=== PATIENT | male | born 1955 | race Two or more races ===

== ENCOUNTER 2019-08-13 20:54 | Inpatient (IN) | payer MEDICARE, OTHER ==
[~2019-08-13] VITALS: Ht 170.2 cm; Wt 62.6 kg
--- NOTE | 2019-08-13 21:20 | NUR ---
PT BIB PA WITH A C/O LLE LACERATION. 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 PT IS AA&O X1 AT BASELINE. PER REPORT, NO GLF AND UNKNOWN WHEN LAC HAPPENED.
--- NOTE | 2019-08-13 22:35 | NUR ---
PT WAS SEEN BY DR VANESSA AND WILL BE D/C'D HOME.
--- NOTE | 2019-08-13 22:43 | NUR ---
[facility] ETA 0015 TRIP #[id number]
[2019-08-13] MEDS ORDERED: TDAP [DIPH/PERTUSSIS/TET] 0.5 ML VIAL IM ONE ×2 (23:00→23:06)
--- NOTE | 2019-08-14 00:28 | NUR ---
SPOKE TO SHEREEN CAIN AT [facility], ALISON GARCIA RE: THE PT RETURNING TO THE FACILITY. NO NEW ORDERS AND NO TREATMENT DONE IN ER.
--- NOTE | 2019-08-14 00:30 | NUR ---
CALLING [facility] RE: ETA. ETA NOW 30 MINS MORE.
--- NOTE | 2019-08-14 01:01 | NUR ---
Jordyn at bedside for transport.
--- NOTE | 2019-08-14 01:18 | NUR ---
pt noted to be tachy hr 150. Dr Felipe notified.
[2019-08-14] MEDS ORDERED: DILTIAZEM HCL 50 MG IV IV ONE ×2 (01:30→02:00)
[2019-08-14] MEDS ORDERED: DILTIAZEM HCL 30 MG TABLET PO ONE (01:30)
[2019-08-14] MEDS ORDERED: DILTIAZEM HCL 25 MG IV ONE ×5 (01:37→05:21)
[2019-08-14] MEDS ORDERED: DILTIAZEM HCL 30 MG TABLET ONE (01:37)
[2019-08-14 01:44] LABS: BASOPHILS % (AUTO) 0.4 % (0.0-2.0); HEMATOCRIT 34 % (39-51); HEMOGLOBIN 10.5 g/dL (13.5-17.5); LYMPHOCYTES # (AUTO) 1.5 /CMM (0.8-4.8); LYMPHOCYTES % (AUTO) 11.3 % (20.0-44.0); MEAN CORPUSCULAR HGB CONC 31 g/dl (31.0-36.0); MEAN CORPUSCULAR VOLUME 86 fL (80-96); MONOCYTES # (AUTO) 0.9 /CMM (0.1-1.30); MONOCYTES % (AUTO) 7.2 % (2.0-12.0); NEUTROPHILS # (AUTO) 10.6 /CMM (1.8-8.9); NEUTROPHILS % (AUTO) 81.1 % (43.0-81.0); PLATELET COUNT (AUTO) 396 /CMM (150-450); RED BLOOD CELL COUNT(AUTO) 3.89 MIL/uL (4.5-6.0)
[2019-08-14 01:51] LABS: CALCIUM, SERUM 8.8 mg/dL (8.5-10.1); CREATININE 1.1 mg/dL (0.6-1.3); POTASSIUM 4.6 mmol/L (3.5-5.1)
[2019-08-14] MEDS ORDERED: LORAZEPAM INJ 2 MG/ML VIAL ONE (02:11)
[2019-08-14] MEDS ORDERED: DILTIAZEM HCL 50 MG IV ONE (02:29)
[2019-08-14] MEDS ORDERED: IV NS 0.9% 1,000 ML IV PRN ×3 (02:30→09:43)
[2019-08-14] MEDS ORDERED: LORAZEPAM INJ 2 MG/ML VIAL IV ONE (02:30)
[2019-08-14] MEDS: DILTIAZEM HCL IV 125 MG in IV D5W 100 ML IV PRN ×2 (02:39→05:38)
--- NOTE | 2019-08-14 02:47 | NUR ---
seen by trevor BAGLEY
[2019-08-14 03:00] LABS: APPEARANCE,URINE Clear (CLEAR); BILIRUBIN,URINE Negative (NEGATIVE); BLOOD, URINE Trace-lysed Ery/uL (NEGATIVE); COLOR,URINE Yellow (YELLOW); KETONES,URINE 15 (NEGATIVE); LEUKOCYTE ESTERASE ,URINE Small (NEGATIVE); NITRITE, URINE Positive (NEGATIVE); PROTEIN,URINE 100 mg/dl (NEGATIVE); UGLUCOSE Negative (NEGATIVE); UROBILINOGEN,URINE 0.2 EU/dL (0.2)
[2019-08-14] MEDS ORDERED: NS 0.9% IV PRN (03:00)
--- NOTE | 2019-08-14 03:08 | NUR ---
placed on 2l of n/c Addendum: 08/14/19 at 0308 by EWS noted 88% O2, Patient is asleep.
[2019-08-14] MEDS ORDERED: FERR325T23 PO (03:37)
[2019-08-14] MEDS ORDERED: FAMO20TA8 PO (03:37)
[2019-08-14] MEDS ORDERED: INSU100V7 SQ (03:37)
[2019-08-14] MEDS ORDERED: OXYC-128 PO (03:37)
[2019-08-14] MEDS ORDERED: AMLO10TA7 PO (03:37)
[2019-08-14] MEDS ORDERED: QUET25TA PO ×2 (03:37)
[2019-08-14] MEDS ORDERED: TAMS-12 PO (03:37)
[2019-08-14] MEDS ORDERED: FINA5TAB11 PO (03:37)
[2019-08-14] MEDS ORDERED: GABA-532 PO (03:37)
[2019-08-14] MEDS ORDERED: PRED10TA PO (03:37)
[2019-08-14] MEDS ORDERED: VALP250C3 PO (03:37)
[2019-08-14 03:51] LABS: BACTERIA,URINE Few /HPF (None Seen); RBC,URINE 0-2 /HPF (0-2); SQUAMOUS EPITHELIAL CELL,UR Few /HPF (None Seen)
--- NOTE | 2019-08-14 03:53 | NUR ---
spoke w/ Janee DNP, verbal order to give Normal saline 1000mL 150ml/hr. will carry out order.
--- NOTE | 2019-08-14 03:58 | NUR ---
Orders carried out
--- NOTE | 2019-08-14 04:12 | NUR ---
report given to Narda REGAN for RAMSES
--- NOTE | 2019-08-14 04:25 | NUR ---
PLATE PUT IN WORKER NOTES: PATIENT ARRIVED TO UNIT VIA ACLS PROTOCOL. NO RESPIRATORY DISTRESS. ON O2 AT 2 LPM VIA NC, TOLERATING WELL. ON CRISIS MANAGER SHOWING HR 130s-140s. NO C/O CHEST PAIN. PHOTOS OF SKIN ISSUES TAKEN AND PLACED IN CHART. WOUND DRESSINGS CLEANED AND CHANGED. SANDY IS INTACT, PATENT, AND FLUSHING WELL. SAFETY PRECAUTIONS IMPLEMENTED. BED LOCKED, ALARM ON, AND IN LOWEST POSITION. CALL LIGHT PLACED WITHIN REACH. WILL CONT. TO MONITOR.
[2019-08-14] MEDS ORDERED: CEFTRIAXONE 1 G VIAL ONE (05:17)
[2019-08-14] MEDS: CEFTRIAXONE 1 G in IV D5W 50 ML IV SCH (05:21)
[2019-08-14 06:00] VITALS: BP 119/74
--- NOTE | 2019-08-14 07:30 | NUR ---
JHONATHAN RN AM NOTES: PATIENT IN BED, ASLEEP, AROUSES TO LIGHT PAIN, UNCOMPREHENSIBLE WORDS, ON O2 AT 2 LPM VIA NC, TOLERATING WELL. NO DISTRESS/SOB, ON SCHOOL SERVICES OFFICER SHOWING HR 130s-140s. MD AWARE. NO C/O CHEST PAIN. IV TO LEFT FOREARM G 20 FLUSHES WELL, SITE CLEAR. SANDY IS INTACT, PATENT, DRAINING YELLOW COLORED URINE, ADEQUATE AMOUNT. SEE NURSING FLOWSHEET FOR SKIN ISSUES. SAFETY PRECAUTIONS IMPLEMENTED. BED LOCKED, ALARM ON, AND IN LOWEST POSITION. CALL LIGHT PLACED WITHIN REACH. WILL CONT. TO MONITOR.
--- NOTE | 2019-08-14 07:30 | NUR ---
RN CLOSING NOTE: PATIENT IN STABLE CONDITION. NOT IN ANY ACUTE DISTRESS. PER KHUSHI DIRECTOR OF PRODUCT DEVELOPMENT, TELLY IS DC'D AND PLACE PATIENT ON NPO. ENDORSED TO AM SHIFT NURSE FOR CONTINUITY OF CARE.
[2019-08-14 08:00] VITALS: BP 98/75
--- NOTE | 2019-08-14 08:00 | NUR ---
RN NOTES PER NAVARRO PURI NP EARLIER, PATIENT WAS STARTED ON CARDIZEM DRIP BUT DID NOT DO ANY GOOD TO HIS HEART RATE. DRIP STOPPED AND AWAITING CARDIAC CONSULT.
[2019-08-14] MEDS ORDERED: ENOXAPARIN SODIUM 40 MG/0.4 ML DISP.SYRIN SQ ONE (09:00)
[2019-08-14] MEDS: INSULIN GLARGINE, 100 UNIT/ML CARTRIDGE SQ SCH (10:00)
[2019-08-14] MEDS: GABAPENTIN 100 MG CAPSULE PO SCH ×3 (10:00→17:16)
[2019-08-14] MEDS: FINASTERIDE (5 MG) 5 MG TABLET PO SCH (10:00)
[2019-08-14] MEDS: QUETIAPINE FUMARATE 25 MG TABLET PO SCH ×4 (10:00→22:50)
[2019-08-14] MEDS: predniSONE 10 MG TABLET PO SCH (10:00)
[2019-08-14] MEDS: FAMOTIDINE (20 MG) 20 MG TABLET PO SCH ×2 (10:00→21:00)
[2019-08-14] MEDS ORDERED: AMIODARONE 900 MG in IV D5W 500 ML IV PRN (10:00)
[2019-08-14] MEDS: TAMSULOSIN 0.4 MG CAP.SR.24H PO SCH ×2 (10:00→22:50)
[2019-08-14] MEDS ORDERED: AMIODARONE 150 MG in IV D5W 100 ML IV ONE (10:00)
[2019-08-14] MEDS: VALPROIC ACID 250 MG/5 ML UDC PO SCH ×2 (10:00→17:16)
--- NOTE | 2019-08-14 10:00 | NUR ---
JHONATHAN RN NOTES MEDICATIONS NOT GIVEN PER OREM. PATIENT VERY LETHARGIC
[2019-08-14] MEDS ORDERED: RIVAROXABAN 10 MG TABLET PO SCH (11:00)
[2019-08-14 12:00] VITALS: BP 139/74
[2019-08-14 12:07] LABS: MAGNESIUM 1.8 mg/dL (1.8-2.4); PHOSPHORUS 3.1 mg/dL (2.5-4.9)
[2019-08-14 12:16] LABS: THYROID STIMULATING HORMONE 0.46 uIU/mL (0.358-3.74)
--- NOTE | 2019-08-14 13:17 | NUR ---
RN NOTES PER DR. YIN TO SKIP NEURONDOUG FOR NOW.
[2019-08-14] MEDS: RIVAROXABAN 10 MG TABLET PO SCH ×2 (13:22→17:00)
[2019-08-14 16:00] VITALS: BP 123/71
--- NOTE | 2019-08-14 18:32 | NUR ---
JHONATHAN RN CLOSING NOTES: PATIENT IN BED, RESTING. MORE ALERT BUT CONFUSED, ON O2 AT 2 LPM VIA NC, TOLERATING WELL. NO DISTRESS/SOB, ON CABLE MAKER SHOWING HR 130s-140s. MD AWARE. NO C/O CHEST PAIN. ON AMIODARONE DRIP AT 33.3 ML/HR. IV TO LEFT FOREARM G 20 FLUSHES WELL, SITE CLEAR. SANDY IS INTACT, PATENT, DRAINING YELLOW COLORED URINE, ADEQUATE AMOUNT 1250 ML OUTPUT. SAFETY PRECAUTIONS IMPLEMENTED. BED LOCKED, ALARM ON, AND IN LOWEST POSITION. CALL LIGHT PLACED WITHIN REACH. ALL NEEDS MET AT THIS TIME. RESTRAINT RELEASED EVERY 2 HOURS AND CHECKED FOR CIRCULATION. WILL ENDORSE TO NEXT SHIFT. PATIENT MORE ALERT, ABLE TO SWALLOW MEDICATIONS CRUSHED WITH APPLE SAUCE. HOB ELEVATED.
--- NOTE | 2019-08-14 19:25 | NUR ---
TELE-TD/RN notes Patient received in bed, Awake, A/O x0, confused. In no acute distress, breathing even and unlabored. No SOB noted. no S/S of pain noted at this time. A-fib on the monitor, MD aware, on Amiodarone drips, titrated down to 16.5ml/hr.. IV site with no S/S of infection/infiltration, with fluids as ordered. rankin cath in place, patent with yellow color urine, Safety maintained, bed at the lowest locked position. Call light within reach. Will continue to monitor as per plan of care.
--- NOTE | 2019-08-14 21:14 | NUR ---
Patient hardly arousable to verbal and tactile stimuli, Breathing even and unlabored. No SOB noted, VSS, Saturation 96% on 2LPM via NC, Checked patient blood sugar at this time noted 51.
--- NOTE | 2019-08-14 21:15 | NUR ---
PEPCID NOT GIVEN ORDERED, PATIENT HARDLY AROUSABLE
--- NOTE | 2019-08-14 21:21 | NUR ---
Called Janee Meier at this time with new order for IV D50 x1 and change the fluids to D5NS @ 75mL/HR. Orders noted and will carry out.
[2019-08-14] MEDS ORDERED: DEXTROSE 50%-WATER 50 ML DISP.SYRIN IVP ONE (21:30)
--- NOTE | 2019-08-14 21:55 | NUR ---
Checked patient blood sugar at this time 131, patient awake, A/O to his base line. In no acute distress, breathing even unlabored. No SOB noted. VSS. Will continue to monitor
[2019-08-14 22:00] VITALS: BP 141/85
[2019-08-14] MEDS ORDERED: IV D5/ 0.9% NACL 1,000 ML IV PRN (22:00)
[2019-08-15] VITALS (8 sets, daily range): BP systolic 126–143; BP diastolic 59–83
[2019-08-15] MEDS: CEFTRIAXONE 1 G in IV D5W 50 ML IV SCH (05:33)
[2019-08-15 06:45] LABS: BASOPHILS % (AUTO) 0.3 % (0.0-2.0); EOSINOPHILS % (AUTO) 0.4 % (0.0-6.0); HEMATOCRIT 31 % (39-51); HEMOGLOBIN 9.7 g/dL (13.5-17.5); LYMPHOCYTES # (AUTO) 1.5 /CMM (0.8-4.8); LYMPHOCYTES % (AUTO) 10.7 % (20.0-44.0); MEAN CORPUSCULAR HGB CONC 31 g/dl (31.0-36.0); MEAN CORPUSCULAR VOLUME 86 fL (80-96); MONOCYTES # (AUTO) 1.4 /CMM (0.1-1.30); MONOCYTES % (AUTO) 9.9 % (2.0-12.0); NEUTROPHILS % (AUTO) 78.7 % (43.0-81.0); PLATELET COUNT (AUTO) 395 /CMM (150-450); RED BLOOD CELL COUNT(AUTO) 3.64 MIL/uL (4.5-6.0)
[2019-08-15 07:01] LABS: ALBUMIN 1.8 g/dL (3.4-5.0); BILIRUBIN,TOTAL 0.5 mg/dL (0.2-1.0); CREATININE 0.7 mg/dL (0.6-1.3); MAGNESIUM 1.7 mg/dL (1.8-2.4); PHOSPHORUS 2.4 mg/dL (2.5-4.9); POTASSIUM 3.6 mmol/L (3.5-5.1); TOTAL PROTEIN, SERUM 5.3 g/dL (6.4-8.2)
--- NOTE | 2019-08-15 07:20 | NUR ---
TELE-TD/RN notes Patient remained in bed, Awake, A/O x1, confused. In no acute distress, breathing even and unlabored. No SOB noted. no S/S of pain noted at this time. A-fib on the monitor, uncontrolled, MD aware, on Amiodarone drips as ordered. IV site with no S/S of infection/infiltration, with fluids as ordered. rankin cath in place, patent with yellow color urine output 900 in this shift. Safety maintained, bed at the lowest locked position. Call light within reach. endorse to AM shift nurse for RAMSES. .
--- NOTE | 2019-08-15 08:00 | NUR ---
TD/RN AM SHIFT INITIAL NOTES RECEIVED PT AWAKE IN BED, PT ALERT X 1, CONFUSED. RESTLESS. NO ACUTE CHANGE OF CONDITION NOTED. ON 2L O2 VIA N/C SATURATING @ 100%, RESPIRATIONS EVEN & UNLABORED, LUNG SOUNDS CLEAR. ON TELE WITH UNCONTROLLED A-FIB, HR 129. PT WITH ON GOING IV INFUSION OF AMIODARONE DRIP @ 0.5MG/MIN AND D5NS @ 75CC/HR, IV SITE PATENT WITH NO S/S ON INFECTION. PT ON NPO EXCEPT MEDS. BILATERAL SOFT WRIST RESTRAINTS IN PLACED, RELEASED TO CHECK FOR CIRCULATION AND COMFORT THEN PLACED BACK. SANDY CATHETER INTACT NOTED WITH YELLOW URINE OUTPUT. SCHEDULED AM MEDS TO BE GIVEN. CL WITHIN REACHED AND SAFETY MAINTAINED. ON GOING MONITORING.
[2019-08-15] MEDS: predniSONE 10 MG TABLET PO SCH (08:28)
[2019-08-15] MEDS: FAMOTIDINE (20 MG) 20 MG TABLET PO SCH ×2 (08:28→21:54)
[2019-08-15] MEDS: QUETIAPINE FUMARATE 25 MG TABLET PO SCH ×4 (08:28→21:54)
[2019-08-15] MEDS: FINASTERIDE (5 MG) 5 MG TABLET PO SCH (08:28)
[2019-08-15] MEDS: GABAPENTIN 100 MG CAPSULE PO SCH ×3 (08:28→16:45)
[2019-08-15] MEDS: VALPROIC ACID 250 MG/5 ML UDC PO SCH ×2 (08:28→16:45)
[2019-08-15] MEDS: INSULIN GLARGINE, 100 UNIT/ML CARTRIDGE SQ SCH (08:30)
[2019-08-15] MEDS ORDERED: POTASSIUM PHOSPHATE MM 15 MMOL in IV D5W 250 ML IV SCH (09:30)
[2019-08-15] MEDS: Magnesium 1GM/D5W 100ML PREMIX 100 ML IV SCH ×2 (10:17→11:41)
[2019-08-15] MEDS: POTASSIUM PHOSPHATE MM 7.5 MMOL in IV D5W 100 ML IV SCH ×2 (10:17→13:43)
--- NOTE | 2019-08-15 11:00 | NUR ---
TD/RN ROUNDS - DR. YIN UPDATED PT'S CONDITION. PT SEEN & EXAMINED BY DR. YIN, WITH VERBAL ORDERS RECEIVED TO RESUME FEEDING AND D/C IV FLUIDS ONCE PT STARTED EATING. ORDERS NOTED AND CARRIED OUT. MONITORING CONTINUED.
[2019-08-15] MEDS: DIGOXIN 0.25 MG TABLET PO SCH (12:31)
--- NOTE | 2019-08-15 13:03 | NUR ---
TD/RN CONSENT - CARDIOVERSION CONSENT OBTAINED FROM PT'S SON (NAM HERRERA) FOR CARDIOVERSION. CONSENT FILLED IN PT'S CHART.
[2019-08-15 13:29] LABS: OCCULT BLOOD STOOL NEGATIVE (NEGATIVE)
--- NOTE | 2019-08-15 15:30 | NUR ---
TD/LINING MARKER OF CARE REPORT GIVEN TO NURSE GONZALES. PT ENDORSED TO CONTINUE CARE.
[2019-08-15] MEDS: RIVAROXABAN 10 MG TABLET PO SCH (16:45)
[2019-08-15] MEDS: AMIODARONE HCL 200 MG TABLET PO SCH (16:47)
[2019-08-15] MEDS: SOD FERRIC GLUC 125 MG in IV NS 0.9% 100 ML IV SCH (17:12)
--- NOTE | 2019-08-15 17:41 | NUR ---
RN NOTES 1400 IV FERRLICET GIVEN LATE BECAUSE LACK OF IV ACCESS. WILL CONTINUE TO MONITOR FOR ANY CHANGES.
--- NOTE | 2019-08-15 18:56 | NUR ---
RN NOTES RESTRAINTS HAVE BEEN RENEWED. PT IS STILL CONFUSED AND ATTEMPTS PULL ON IV LINES AND OXYGEN TUBING, WILL CONTINUE TO MONITOR FOR ANY CHANGES.
--- NOTE | 2019-08-15 19:30 | NUR ---
RN CLOSING NOTES PATIENT IS RESTING COMFORTABLY IN BED, DOES NO SHOW ANY S/SX OF DISTRESS AT THIS TIME. BILATERAL SOFT WRIST RESTRAINTS ARE INTACT, PT IS CONFUSED AND TRIES TO PULL ON LINES. HE IS SCHEDULED FOR CARDIOVERSION TOMORROW AM WITH DR. BASILIO. PT NEEDS HAVE BEEN MET, VITAL SIGNS ARE STABLE, NO ACUTE CHANGES OCCURRED THROUGHOUT THE SHIFT. SAFETY MEASURES HAVE BEEN IMPLEMENTED, CALL LIGHT IS WITHIN REACH, BED IS IN LOWEST AND LOCKED POSITION, SIDE RAILS UP X2, PT HAS BEEN ENDORSED TO NIGHTSHIFT RN FOR CONTINUITY OF CARE.
[2019-08-15] MEDS: MUPIROCIN OINT 2% 22 GM TUBE SCH (21:52)
[2019-08-15] MEDS: TAMSULOSIN 0.4 MG CAP.SR.24H PO SCH (21:54)
[2019-08-16] VITALS (12 sets, daily range): BP systolic 114–142; BP diastolic 70–91
[2019-08-16] MEDS: CEFTRIAXONE 1 G in IV D5W 50 ML IV SCH (06:04)
--- NOTE | 2019-08-16 07:20 | NUR ---
JHONATHAN RN OPENING NOTES RECEIVED BEDSIDE REPORT FROM [facility] SHIFT NURSE, PT AWAKE IN BED, ALERT AND ORIENTED X 1, ON 02 VIA NC 2L/MIN, SATURATING WELL, RESPIRATIONS EVEN AND UNLABORED, NO SIGNS OF RESPIRATORY DISTRESS NOTED. BILATERAL SOFT WRIST RESTRAINTS ARE INTACT, CHECKED SKIN INTEGRITY, CIRCULATION AND FOR PULSES. ON TELE MONITOR AFIB UNCONTROLLED HR 138. REMOVED IV SITE ON LEFT FOREARM G18, SECURED WITH CLEAN DRESSING. RIGHT UPPER ARM MIDLINE INTACT, PATENT, SECURED WITH CLEAN DRESSING. SANDY CATHETER INTACT, PATENT, DRAINING SULEMA URINE. DIGNISHIELD INTACT. NPO SINCE MIDNIGHT. SCHEDULED FOR CARDIOVERSION AT 11AM, WILL BE TRANSFERRED TO ROOM 263 IN ICU AT 0900. BED IN LOW POSITION, LOCKED, CALL LIGHT WITHIN REACH.
[2019-08-16 07:23] LABS: BASOPHILS % (AUTO) 0.3 % (0.0-2.0); EOSINOPHILS % (AUTO) 0.3 % (0.0-6.0); HEMATOCRIT 31 % (39-51); LYMPHOCYTES # (AUTO) 1.8 /CMM (0.8-4.8); LYMPHOCYTES % (AUTO) 14.2 % (20.0-44.0); MEAN CORPUSCULAR HGB CONC 32 g/dl (31.0-36.0); MEAN CORPUSCULAR VOLUME 85 fL (80-96); MONOCYTES # (AUTO) 1.3 /CMM (0.1-1.30); MONOCYTES % (AUTO) 10.2 % (2.0-12.0); NEUTROPHILS # (AUTO) 9.4 /CMM (1.8-8.9); PLATELET COUNT (AUTO) 398 /CMM (150-450); RED BLOOD CELL COUNT(AUTO) 3.67 MIL/uL (4.5-6.0); WHITE BLOOD COUNT (AUTO) 12.6 K/uL (4.3-11.0)
[2019-08-16 07:48] LABS: ALBUMIN 1.6 g/dL (3.4-5.0); BILIRUBIN,TOTAL 0.3 mg/dL (0.2-1.0); CALCIUM, SERUM 8.1 mg/dL (8.5-10.1); CREATININE 0.9 mg/dL (0.6-1.3); MAGNESIUM 1.9 mg/dL (1.8-2.4); PHOSPHORUS 2.3 mg/dL (2.5-4.9); POTASSIUM 3.4 mmol/L (3.5-5.1); TOTAL PROTEIN, SERUM 5.2 g/dL (6.4-8.2)
[2019-08-16] MEDS: AMIODARONE HCL 200 MG TABLET PO SCH (08:14)
[2019-08-16] MEDS: VALPROIC ACID 250 MG/5 ML UDC PO SCH ×2 (08:15→16:30)
[2019-08-16] MEDS: GABAPENTIN 100 MG CAPSULE PO SCH ×3 (08:15→16:31)
[2019-08-16] MEDS: FINASTERIDE (5 MG) 5 MG TABLET PO SCH (08:16)
[2019-08-16] MEDS: predniSONE 10 MG TABLET PO SCH (08:16)
[2019-08-16] MEDS: QUETIAPINE FUMARATE 25 MG TABLET PO SCH ×4 (08:16→21:01)
[2019-08-16] MEDS: FAMOTIDINE (20 MG) 20 MG TABLET PO SCH ×2 (08:16→21:01)
[2019-08-16] MEDS: MUPIROCIN OINT 2% 22 GM TUBE SCH ×2 (08:19→21:06)
[2019-08-16] MEDS: INSULIN GLARGINE, 100 UNIT/ML CARTRIDGE SQ SCH (08:23)
[2019-08-16 08:51] LABS: LYMPHOCYTES % (MANUAL) 16 % (16-48); MONOCYTES % (MANUAL) 6 % (0-11.0); NEUTROPHILS % (MANUAL) 78 (42-76)
--- NOTE | 2019-08-16 09:00 | NUR ---
TRANSFERRED PT VIA ACLS PROTOCOL TO ICU ROOM 263, REPORT GIVEN TO JORJE REGAN FOR RAMSES
--- NOTE | 2019-08-16 09:05 | NUR ---
FOOD STOREROOM CLERK NOTES RECEIVED PATIENT FROM JHONATHAN FOR SCHEDULED CARDIOVERSION.
--- NOTE | 2019-08-16 10:52 | NUR ---
FACTORY LABORER NOTE DR. BASILIO, DR. DAGOBERTO THORPE AND DR. MURILLO AT BEDSIDE FOR SCHEDULED CARDIOVERSION 1047 - PATIENT GIVEN PROPOFOL BY DR. THORPE. CARDIOVERSION DONE X 3 SHOCKS - DID NOT CONVERT. 105 - PROCEDURE DONE AT 1052. PRE AND POST EKG DONE.
[2019-08-16] MEDS ORDERED: PROPOFOL 200 MG/20 ML VIAL IV ONE (11:00)
--- NOTE | 2019-08-16 12:05 | NUR ---
WOUND CARE CONSULT: PT PRESENTS WITH LEFT ARM SKIN TEAR, MULTIPLE DRY ABRASIONS, SACRAL SCARRING WHICH EXTENDS TO BUTTOCKS, LEFT HEEL ESCHAR, LEFT LOWER LEG SKIN TEAR, RT BELOW KNEE AMPUTATION STUMP WITH NECROTIC WOUND, ALL PRESENT ON ADMISSION. RECOMMEND DPM CONSULT AND SURGICAL CONSULT. DR PAINTING NOTIFIED OF CONSULT REQUESTS. ISOFLEX LOW AIRLOSS BED TO BE PLACED. DISCUSSED SKIN PROTECTION WITH NURSING STAFF. DEFER TO SURGICAL TEAMS FOR WOUND TREATMENT PLAN. WILL SEE PRN. FIELDS IN AGREEMENT WITH PLAN OF CARE. Addendum: 08/16/19 at 1207 by SHARYN MORGAN WNDNU Amended: Links added.
[2019-08-16] MEDS: DIGOXIN 0.25 MG TABLET PO SCH (12:29)
[2019-08-16] MEDS: DILTIAZEM HCL CD 240 MG PO SCH (12:30)
[2019-08-16] MEDS ORDERED: Z GUARD REMEDY 2 OZ OINT TP PRN (12:30)
[2019-08-16] MEDS: Z GUARD REMEDY 2 OZ OINT TP SCH (12:30)
[2019-08-16] MEDS: POTASSIUM CL. PREMIX PERIPHER. 50 ML IV SCH ×2 (12:30→13:23)
[2019-08-16] MEDS ORDERED: NEUTRA PHOS 1 POWD.PACKET PO ONE (13:00)
--- NOTE | 2019-08-16 14:35 | NUR ---
DATA ABSTRACTOR NOTES PATIENT TRANSFERRED BACK TO TELEMETRY RM 112-2. REPORT GIVEN TO URBANO FOR RAMSES. Addendum: 08/16/19 at 1548 by JORJE CABRERA RN ADDENDUM: PATIENT S/P DEBRIDEMENT OF RT BKA STUMP. PER DESTINY GARCIA TO COVER WOUND WITH IODOFORM STRIP DOWNSTAIRS, D/T NOT AVAILABLE HERE AT ICU. TOTAL URINE OUTPUT 500 ML.
--- NOTE | 2019-08-16 14:35 | NUR ---
PT TRANSFERRED FROM ICU BACK TO ROOM 112-2. PT IN STABLE CONDITION
[2019-08-16] MEDS: SOD FERRIC GLUC 125 MG in IV NS 0.9% 100 ML IV SCH (15:26)
--- NOTE | 2019-08-16 15:32 | NUR ---
rocky see iv late due to pharmacy not delivering medication on time
[2019-08-16] MEDS: RIVAROXABAN 10 MG TABLET PO SCH (16:31)
--- NOTE | 2019-08-16 19:33 | NUR ---
PT ASLEEP IN BED, ON 02 VIA NC 4L/MIN, SATURATING WELL, RESPIRATIONS EVEN AND UNLABORED, NO SIGNS OF RESPIRATORY DISTRESS NOTED. RIGHT UPPER ARM MIDLINE INTACT, PATENT, SECURED WITH CLEAN DRESSING. RECTAL TUBE IN PLACE. SNADY CATHETER DRAINING SULEMA URINE. AFIB UNCONTROLLED ON TELE MONITOR. BED IN LOW POSITION, LOCKED, CALL LIGHT WITHIN REACH. PROVIDED SAFETY AND COMFROT TO PT THROUGHOUT SHIFT. ALL DUE MEDS GIVEN. GAVE REPORT TO NOC SHIFT NURSE FOR RAMSES.
--- NOTE | 2019-08-16 20:44 | NUR ---
RN NOTE PT NOTED TO HAVE UNCONTROLLED A FIB 145 VIA TELE MONITOR. BLOOD PRESSURE IS 126/70 .NOTIFIED NAVARRO EVANS, WHO STATES THAT PT HAS THIS SINCE ADMISSION AND THAT DR. HERNANDEZ IS AWARE. DRY DIP WORKER HAS NO NEW ORDERS. SUGGESTED THAT PT MAY NEED ABLATION. WILL ENDORSE.
[2019-08-16] MEDS: TAMSULOSIN 0.4 MG CAP.SR.24H PO SCH (21:01)
[2019-08-17] VITALS (7 sets, daily range): BP systolic 121–138; BP diastolic 71–81
--- NOTE | 2019-08-17 03:47 | NUR ---
RN NOTE PT NOTED TO BE LETHARGIC AND UNRESPONSIVE COMPARED TO HIS BASELINE UPON RENDERING PT CARE. BLOOD SUGAR CHECKED TWICE AND NOTED TO BE CRITICALLY LOW. ADMINISTERED D50 VIA IV. PT STILL NOTED TO BE UNRESPONSIVE. VITAL SIGNS STABLE. RAPID RESPONSE CALLED.
[2019-08-17] MEDS ORDERED: DEXTROSE 50%-WATER 50 ML DISP.SYRIN ONE (03:51)
--- NOTE | 2019-08-17 03:55 | NUR ---
RN NOTE RAPID RESPONSE TEAM AT BEDSIDE. NAVARRO INTERFACE DEVELOPER NOTIFIED WITH ORDER TO DO STAT ABG, CHEST X RAY, STAT CT OF HEAD AND TO CALL ER FOR INTUBATION. VITAL SIGNS STABLE. PT STILL UNRESPONSIVE TO TACTILE STIMULI.
--- NOTE | 2019-08-17 04:05 | NUR ---
RN NOTE ER PHYSICIAN (CRISTOPHER) AT BEDSIDE. PER MD, PT HAS GAG REFLUX AND HAS NO NEED FOR INTUBATION. PT CURRENTLY ON NON REBREATHER MASK AND WITH SATURATION WNL. MD ALSO AWARE OF ABG RESULT WHICH SHOWED WNL. CALLED RADIOLOGY FOR STAT CT OF HEAD. CALLED SON (NAM HERRERA) AND OBTAINED CONSENT.
[2019-08-17] MEDS ORDERED: IOHEXOL-350 100 ML VIAL IV ONE (04:18)
[2019-08-17 04:29] LABS: ABG OXYGEN SATURATION 98.6 % (92.0-98.5); ABG PCO2 34.1 mmHg (35.0-45.0); ABG PH 7.425 (7.350-7.450); ABG PO2 312.2 mmHg (75.0-100.0); AaDO2 366.7 mmHg; COHb 0.1 % (0.5-1.5); MetHb 0.5 % (0.0-1.5); SITE, ABG Left Radial; VENT MODE, BG NON REBREATHER
[2019-08-17] MEDS ORDERED: DEXTROSE 50%-WATER 50 ML DISP.SYRIN IV PRN (04:30)
[2019-08-17] MEDS ORDERED: IV D5/ 0.9% NACL 1,000 ML IV PRN (04:30)
[2019-08-17] MEDS ORDERED: DEXTROSE 50%-WATER 50 ML DISP.SYRIN IVP ONE (04:30)
--- NOTE | 2019-08-17 04:43 | NUR ---
RN NOTE PT LEFT FOR CT OF HEAD ACCOMPANIED BY CHARGE NURSE DASIA.
[2019-08-17] MEDS: BLOOD SUGAR DIAGNOSTIC 1 EACH STRIP IN SCH ×12 (05:15→23:56)
[2019-08-17] MEDS: CEFTRIAXONE 1 G in IV D5W 50 ML IV SCH (05:18)
--- NOTE | 2019-08-17 06:15 | NUR ---
RN NOTE PT IS IN BED ALERT AND ORIENTED X 1. PT RESPONSIVE TO VERBAL AND TACTILE STIMULI. PT WITH SPONTANEOUS EYE OPENING. JEWELRY DESIGNER NAVARRO MADE AWARE OF CT HEAD RESULT. PT ON CONTINUOUS MONITORING AT THIS TIME. ALL NEEDS MET AND ATTENDED TO.
--- NOTE | 2019-08-17 06:55 | NUR ---
RN CLOSING NOTE PT IN BED IN SEMI MCMILLAN'S POSITION. PT ORIENTED X 1. REPSONSIVE TO VERBAL AND TACTILE STIMULI. ON 4L OF O2 VIA NON REBREATHER MASK. RESPIRATIONS EVEN AND UNLABORED. PT ON CONTINUOUS BLOOD GLUCOSE MONITORING PER MD. ENDORSED TO MORNING SHIFT.
--- NOTE | 2019-08-17 07:01 | NUR ---
RT NOTE Rapid response orders ordered under my account accidentally per RN. Rn aware
[2019-08-17 07:17] LABS: BASOPHILS % (AUTO) 0.3 % (0.0-2.0); EOSINOPHILS % (AUTO) 0.1 % (0.0-6.0); HEMATOCRIT 33 % (39-51); HEMOGLOBIN 10.6 g/dL (13.5-17.5); LYMPHOCYTES # (AUTO) 1.4 /CMM (0.8-4.8); LYMPHOCYTES % (AUTO) 9.7 % (20.0-44.0); MEAN CORPUSCULAR HGB CONC 32 g/dl (31.0-36.0); MEAN CORPUSCULAR VOLUME 86 fL (80-96); MONOCYTES # (AUTO) 1.3 /CMM (0.1-1.30); MONOCYTES % (AUTO) 8.9 % (2.0-12.0); NEUTROPHILS # (AUTO) 11.7 /CMM (1.8-8.9); PLATELET COUNT (AUTO) 426 /CMM (150-450); RED BLOOD CELL COUNT(AUTO) 3.85 MIL/uL (4.5-6.0); WHITE BLOOD COUNT (AUTO) 14.4 K/uL (4.3-11.0)
[2019-08-17 07:24] LABS: CREATININE 0.8 mg/dL (0.6-1.3); MAGNESIUM 1.8 mg/dL (1.8-2.4); PHOSPHORUS 3.9 mg/dL (2.5-4.9); POTASSIUM 3.8 mmol/L (3.5-5.1)
--- NOTE | 2019-08-17 07:49 | NUR ---
RN OPENING NOTES RECEIVED PATIENT RESTING IN BED COMFORTABLY, DOES NOT SHOW ANY S/SX OF RESP DISTRESS OR SOB. HE IS AOX1, VERBAL, AND BED BOUND. HE IS ON 4L OF OXYGEN VIA NONREBREATHER, TOLERATING WELL, NO SOB OR RESP DISTRESS. TELE MONITOR IS SHOWING UNCONTROLLED AFIB AT 125 BPM. FLEXISEAL IS INTACT, DRAINING GREEN/BLACK COLORED STOOL. SANDY CATH IS INTACT AND PATENT. PT HAS R BKA AND LEFT FOOT DIGIT AMPUTATION. HE IS ON PUREED DIET. DEVAUGHN MIDLINE IS PATENT AND INTACT, INFUSING D5 NS AT 75 ML/HR, AM BLOOD GLUCOSE WAS 62. SAFETY MEASURES HAVE BEEN IMPLEMENTED, CALL LIGHT IS WITHIN REACH, BED IS IN LOWEST AND LOCKED POSITION, SIDE RAILS UP X2, WILL CONTINUE TO MONITOR FOR ANY CHANGES.
[2019-08-17] MEDS: SILVER SULFADIAZINE CREAM 25 GM TUBE TP SCH (08:38)
[2019-08-17] MEDS: NEOMY SULF/BACITRAC ZN/POLY 15 GM TUBE TP SCH (08:38)
[2019-08-17] MEDS: FAMOTIDINE (20 MG) 20 MG TABLET PO SCH ×2 (08:39→21:28)
[2019-08-17] MEDS: Z GUARD REMEDY 2 OZ OINT TP SCH (08:39)
[2019-08-17] MEDS: FINASTERIDE (5 MG) 5 MG TABLET PO SCH (08:39)
[2019-08-17] MEDS: DILTIAZEM HCL CD 240 MG PO SCH (08:39)
[2019-08-17] MEDS: VALPROIC ACID 250 MG/5 ML UDC PO SCH ×2 (08:39→16:23)
[2019-08-17] MEDS: predniSONE 10 MG TABLET PO SCH (08:39)
[2019-08-17] MEDS: QUETIAPINE FUMARATE 25 MG TABLET PO SCH ×4 (08:39→21:28)
[2019-08-17] MEDS: GABAPENTIN 100 MG CAPSULE PO SCH ×3 (08:39→16:23)
[2019-08-17] MEDS: MUPIROCIN OINT 2% 22 GM TUBE SCH ×2 (08:41→21:28)
[2019-08-17] MEDS: Sodium Chloride 154 MEQ in IV 10% DEXTROSE 1,000 ML IV PRN (09:12)
[2019-08-17] MEDS: METOPROLOL TARTRATE 50 MG TABLET PO SCH ×2 (11:23→18:42)
--- NOTE | 2019-08-17 12:00 | NUR ---
RN NOTES PT IS RECEIVING D10 VIA IV, BLOOD SUGAR IS STEADILY INCREASING TO NORMAL LIMITS. SPOKE WITH DR. DALLAS, RECEIVED ORDER TO ADJUST BLOOD SUGAR CHECKS FROM Q1H TO Q3H, WILL CONTINUE TO MONITOR FOR ANY CHANGES.
[2019-08-17] MEDS: DIGOXIN 0.25 MG TABLET PO SCH (13:14)
[2019-08-17] MEDS: SOD FERRIC GLUC 125 MG in IV NS 0.9% 100 ML IV SCH (15:37)
--- NOTE | 2019-08-17 15:44 | NUR ---
RN NOTES 1400 DOSE OF IV FERRLICET WAS GIVEN LATE DUE TO PHARMACY DELAY
[2019-08-17] MEDS: RIVAROXABAN 10 MG TABLET PO SCH (16:12)
--- NOTE | 2019-08-17 19:26 | NUR ---
RN CLOSING NOTES PATIENT IS RESTING COMFORTABLY IN BED AT THIS TIME. BLOOD SUGAR LEVELS ARE IMPROVING WITH D10 IVF. PT NEEDS HAVE BEEN MET, VITAL SIGNS ARE STABLE, NO ACUTE CHANGES OCCURRED THROUGHOUT THE SHIFT. SAFETY MEASURES HAVE BEEN IMPLEMENTED, CALL LIGHT IS WITHIN REACH, BED IS IN LOWEST AND LOCKED POSITION, SIDE RAILS UP X2, PT HAS BEEN ENDORSED TO NIGHTSHIFT RN FOR CONTINUITY OF CARE.
--- NOTE | 2019-08-17 19:33 | NUR ---
RN NOTE PATIENT IS AWAKE AND ALERT X 1 IN BED IN SEMI MCMILLAN'S POSITION. BLOOD SUGAR LEVELS CHECKED Q3H PER MD. WITH D10 IVF RUNNING AT THIS TIME. IV SITE NOTED WITHOUT COMPLICATIONS. SAFETY MEASURES BEEN IMPLEMENTED, CALL LIGHT IS WITHIN REACH, BED IS IN LOWEST AND LOCKED POSITION, SIDE RAILS UP X2, WILL MONITOR PT.
[2019-08-17] MEDS: TAMSULOSIN 0.4 MG CAP.SR.24H PO SCH (21:27)
--- NOTE | 2019-08-17 22:10 | NUR ---
2210 RESTRAINS RENEWAL ORDER OBTAINED FROM CRISTINA MCKENZIE.
[2019-08-18] VITALS: BP 124/77
[2019-08-18] MEDS: METOPROLOL TARTRATE 50 MG TABLET PO SCH ×4 (00:02→18:29)
[2019-08-18] MEDS: Sodium Chloride 154 MEQ in IV 10% DEXTROSE 1,000 ML IV PRN (01:56)
[2019-08-18 04:00] VITALS: BP 134/75
[2019-08-18] MEDS: BLOOD SUGAR DIAGNOSTIC 1 EACH STRIP IN SCH ×7 (04:09→21:31)
[2019-08-18] MEDS: CEFTRIAXONE 1 G in IV D5W 50 ML IV SCH (04:11)
--- NOTE | 2019-08-18 07:15 | NUR ---
RN CLOSING NOTE ENDORSED TO MORNING SHIFT FOR CONTINUATION OF CARE. PATIENT RESTING IN BED COMFORTABLY WITHOUT SIGNS OF DISTRESS OR DISCOMFORT. ALERT AND ORIENTED X 1. HE IS ON 4L OF OXYGEN VIA NC, TOLERATING WELL. TELE MONITOR SHOWING AFIB. FLEXISEAL IS PATENT AND INTACT, FC IS PATENT AND INTACT, DRAINING CLEAR YELLOW URINE BY GRAVITY.IV IS PATENT AND INTACT, INFUSING D10 AT 50 ML/HR. SAFETY MEASURES HAVE BEEN IMPLEMENTED, CALL LIGHT IS WITHIN REACH, BED IS IN LOWEST AND LOCKED POSITION, SIDE RAILS UP X2, ALL NEEDS MET AND ATTENDED TO.
--- NOTE | 2019-08-18 07:18 | NUR ---
RN OPENING NOTES RECEIVED PATIENT RESTING IN BED COMFORTABLY, DOES NOT SHOW S/SX OF DISTRESS OR SOB. HE IS AOX1, VERBAL, AND NON-AMBULATORY. HE IS ON 4L OF OXYGEN VIA NC, TOLERATING WELL. LUNGS SOUND DIMINISHED UPON AUSCULTATION. TELE MONITOR SHOWING AFIB. FLEXISEAL IS PATENT AND INTACT, FC IS PATENT AND INTACT, DRAINING URINE BY GRAVITY. PT HAS R BKA AND LEFT LEG LACERATION, WILL ADDRESS PER WOUND CARE PLAN. HE IS ON PUREED DIET, TOLERATING WELL. DEVAUGHN MIDLINE IS PATENT AND INTACT, INFUSING D10 AT 50 ML/HR. SAFETY MEASURES HAVE BEEN IMPLEMENTED, CALL LIGHT IS WITHIN REACH, BED IS IN LOWEST AND LOCKED POSITION, SIDE RAILS UP X2, WILL CONTINUE TO MONITOR FOR ANY CHANGES.
[2019-08-18 07:59] LABS: BASOPHILS % (AUTO) 0.4 % (0.0-2.0); EOSINOPHILS % (AUTO) 0.2 % (0.0-6.0); HEMATOCRIT 32 % (39-51); HEMOGLOBIN 9.9 g/dL (13.5-17.5); LYMPHOCYTES # (AUTO) 1.9 /CMM (0.8-4.8); MEAN CORPUSCULAR HGB CONC 31 g/dl (31.0-36.0); MEAN CORPUSCULAR VOLUME 86 fL (80-96); MONOCYTES % (AUTO) 9.2 % (2.0-12.0); NEUTROPHILS # (AUTO) 8.2 /CMM (1.8-8.9); NEUTROPHILS % (AUTO) 73.2 % (43.0-81.0); PLATELET COUNT (AUTO) 321 /CMM (150-450); RED BLOOD CELL COUNT(AUTO) 3.66 MIL/uL (4.5-6.0); WHITE BLOOD COUNT (AUTO) 11.2 K/uL (4.3-11.0)
[2019-08-18 08:00] VITALS: BP 134/76
[2019-08-18 08:11] LABS: CALCIUM, SERUM 7.7 mg/dL (8.5-10.1); CREATININE 0.9 mg/dL (0.6-1.3); POTASSIUM 3.8 mmol/L (3.5-5.1)
[2019-08-18] MEDS: predniSONE 10 MG TABLET PO SCH (08:20)
[2019-08-18] MEDS: FAMOTIDINE (20 MG) 20 MG TABLET PO SCH ×2 (08:21→21:31)
[2019-08-18] MEDS: QUETIAPINE FUMARATE 25 MG TABLET PO SCH ×4 (08:21→21:31)
[2019-08-18] MEDS: VALPROIC ACID 250 MG/5 ML UDC PO SCH ×2 (08:21→16:38)
[2019-08-18] MEDS: GABAPENTIN 100 MG CAPSULE PO SCH ×3 (08:21→16:38)
[2019-08-18] MEDS: FINASTERIDE (5 MG) 5 MG TABLET PO SCH (08:21)
[2019-08-18] MEDS: NEOMY SULF/BACITRAC ZN/POLY 15 GM TUBE TP SCH (08:22)
[2019-08-18] MEDS: MUPIROCIN OINT 2% 22 GM TUBE SCH ×2 (08:22→21:31)
[2019-08-18] MEDS: DILTIAZEM HCL CD 240 MG PO SCH (08:22)
[2019-08-18] MEDS: SILVER SULFADIAZINE CREAM 25 GM TUBE TP SCH (08:23)
[2019-08-18] MEDS: Z GUARD REMEDY 2 OZ OINT TP SCH (09:00)
[2019-08-18 09:26] VITALS: BP 134/76
[2019-08-18] MEDS: DIGOXIN 0.25 MG TABLET PO SCH (12:14)
[2019-08-18] MEDS: SOD FERRIC GLUC 125 MG in IV NS 0.9% 100 ML IV SCH (13:52)
[2019-08-18 16:00] VITALS: BP 132/80
[2019-08-18] MEDS: RIVAROXABAN 10 MG TABLET PO SCH (16:31)
[2019-08-18 20:00] VITALS: BP 129/68
--- NOTE | 2019-08-18 20:08 | NUR ---
RN CLOSING NOTES PATIENT IS RESTING COMFORTABLY IN BED AT THIS TIME, WITH 4L OF OXYGEN VIA NC, TOLERATING WELL. NO S/SX OF DISTRESS OR SOB. PT NEEDS HAVE BEEN MET, VITAL SIGNS ARE STABLE, NO ACUTE CHANGES OCCURRED THROUGHOUT THE SHIFT. SAFETY MEASURES HAVE BEEN IMPLEMENTED, CALL LIGHT IS WITHIN REACH, BED IS IN LOWEST AND LOCKED POSITION, SIDE RAILS UP X2, WILL CONTINUE TO MONITOR FOR ANY CHANGES.
--- NOTE | 2019-08-18 20:11 | NUR ---
PT HAS BEEN ENDORSED TO NIGHTSHIFT RN FOR CONTINUITY OF CARE.
[2019-08-18] MEDS: TAMSULOSIN 0.4 MG CAP.SR.24H PO SCH (21:31)
[2019-08-19] MEDS: BLOOD SUGAR DIAGNOSTIC 1 EACH STRIP IN SCH ×8 (01:26→22:04)
[2019-08-19] MEDS: METOPROLOL TARTRATE 50 MG TABLET PO SCH ×5 (01:28→23:36)
[2019-08-19 04:00] VITALS: BP 131/57
[2019-08-19] MEDS: CEFTRIAXONE 1 G in IV D5W 50 ML IV SCH (05:01)
--- NOTE | 2019-08-19 06:24 | NUR ---
MS RN NOTES AWAKE & ALERT. NOT IN ANY DISTRESS. NO SOB NOTED. NO S/SX OF ANY PAIN OR DISCOMFORT AT THIS TIME. WITH MIDLINE PATENT & INTACT. AM CARE DONE. MONITORED ACCORDINGLY. CALL LIGHT WITHIN REACH. BED IN LOWEST POSITION. SR UP X 3 WITH BED ALARM ON FOR SAFETY. WILL ENDORSE TO NEXT SHIFT.
[2019-08-19 07:27] LABS: BASOPHILS # (AUTO) 0.1 /CMM (0.0-0.2); BASOPHILS % (AUTO) 0.4 % (0.0-2.0); EOSINOPHILS % (AUTO) 0.2 % (0.0-6.0); HEMATOCRIT 33 % (39-51); HEMOGLOBIN 10.1 g/dL (13.5-17.5); LYMPHOCYTES % (AUTO) 12.8 % (20.0-44.0); MEAN CORPUSCULAR HGB CONC 31 g/dl (31.0-36.0); MEAN CORPUSCULAR VOLUME 85 fL (80-96); MONOCYTES # (AUTO) 1.4 /CMM (0.1-1.30); MONOCYTES % (AUTO) 9.3 % (2.0-12.0); NEUTROPHILS # (AUTO) 11.9 /CMM (1.8-8.9); NEUTROPHILS % (AUTO) 77.3 % (43.0-81.0); PLATELET COUNT (AUTO) 396 /CMM (150-450); RED BLOOD CELL COUNT(AUTO) 3.84 MIL/uL (4.5-6.0); WHITE BLOOD COUNT (AUTO) 15.4 K/uL (4.3-11.0)
[2019-08-19 07:55] LABS: CALCIUM, SERUM 7.6 mg/dL (8.5-10.1); POTASSIUM 3.6 mmol/L (3.5-5.1)
[2019-08-19 08:00] VITALS: BP 135/77
[2019-08-19] MEDS: SILVER SULFADIAZINE CREAM 25 GM TUBE TP SCH (09:00)
[2019-08-19] MEDS: MUPIROCIN OINT 2% 22 GM TUBE SCH ×2 (09:00→21:00)
[2019-08-19] MEDS: Z GUARD REMEDY 2 OZ OINT TP SCH (09:00)
[2019-08-19] MEDS: NEOMY SULF/BACITRAC ZN/POLY 15 GM TUBE TP SCH (09:00)
[2019-08-19] MEDS: QUETIAPINE FUMARATE 25 MG TABLET PO SCH ×4 (09:00→21:50)
[2019-08-19] MEDS: VALPROIC ACID 250 MG/5 ML UDC PO SCH ×2 (11:45→17:52)
[2019-08-19] MEDS: DILTIAZEM HCL CD 240 MG PO SCH (11:47)
[2019-08-19] MEDS: FINASTERIDE (5 MG) 5 MG TABLET PO SCH (11:48)
[2019-08-19] MEDS: GABAPENTIN 100 MG CAPSULE PO SCH ×3 (11:48→17:00)
[2019-08-19] MEDS: FAMOTIDINE (20 MG) 20 MG TABLET PO SCH ×2 (11:48→21:49)
[2019-08-19] MEDS: predniSONE 10 MG TABLET PO SCH (11:52)
[2019-08-19] MEDS: DIGOXIN 0.25 MG TABLET PO SCH (15:23)
[2019-08-19 16:00] VITALS: BP 129/70
[2019-08-19] MEDS: SOD FERRIC GLUC 125 MG in IV NS 0.9% 100 ML IV SCH (16:00)
[2019-08-19] MEDS: RIVAROXABAN 10 MG TABLET PO SCH (17:56)
--- NOTE | 2019-08-19 19:30 | NUR ---
MS RN NOTES PATIENT IN BED, ASLEEP, EASILY AROUSED, ALERT AND ORIENTED X 1. BREATHING EVEN AND UNLABORED ON NC 4L. SHOWS NO SIGNS OF ACUTE RESPIRATORY DISTRESS, NO ACUTE PAIN. MIDLINE OF DEVAUGHN CLEAN,DRY AND INTACT. SHOWS NO SIGNS OF INFILTRATION, NO REDNESS. SANDY IS FLOWING CLEAR YELLOW URINE AND FLEXISEAL IS INTACT. SAFETY PRECAUTIONS IN PLACE. BED IN LOWEST POSITION, LOCKED, AND CALL LIGHT KEPT WITHIN REACH. WILL CONTINUE TO MONITOR.
[2019-08-19 20:00] VITALS: BP 123/69
[2019-08-19] MEDS: TAMSULOSIN 0.4 MG CAP.SR.24H PO SCH (21:50)
[2019-08-20] VITALS: BP 123/69
[2019-08-20 04:00] VITALS: BP 128/70
[2019-08-20] MEDS: METOPROLOL TARTRATE 50 MG TABLET PO SCH ×2 (06:12→13:33)
[2019-08-20 06:30] LABS: BASOPHILS # (AUTO) 0.1 /CMM (0.0-0.2); BASOPHILS % (AUTO) 0.2 % (0.0-2.0); EOSINOPHILS % (AUTO) 0.1 % (0.0-6.0); HEMATOCRIT 38 % (39-51); HEMOGLOBIN 11.9 g/dL (13.5-17.5); LYMPHOCYTES # (AUTO) 1.8 /CMM (0.8-4.8); LYMPHOCYTES % (AUTO) 7.9 % (20.0-44.0); MEAN CORPUSCULAR HGB CONC 31 g/dl (31.0-36.0); MEAN CORPUSCULAR VOLUME 86 fL (80-96); MONOCYTES # (AUTO) 1.6 /CMM (0.1-1.30); MONOCYTES % (AUTO) 7.2 % (2.0-12.0); NEUTROPHILS # (AUTO) 18.7 /CMM (1.8-8.9); NEUTROPHILS % (AUTO) 84.6 % (43.0-81.0); PLATELET COUNT (AUTO) 358 /CMM (150-450); RED BLOOD CELL COUNT(AUTO) 4.41 MIL/uL (4.5-6.0); WHITE BLOOD COUNT (AUTO) 22.2 K/uL (4.3-11.0)
[2019-08-20 06:40] LABS: CALCIUM, SERUM 7.9 mg/dL (8.5-10.1); CREATININE 1.2 mg/dL (0.6-1.3); POTASSIUM 4.1 mmol/L (3.5-5.1)
--- NOTE | 2019-08-20 06:45 | NUR ---
MS RN NOTES PATIENT IN BED, ASLEEP, EASILY AROUSED, ALERT AND ORIENTED X 1. BREATHING EVEN AND UNLABORED ON NC 4L. SHOWS NO SIGNS OF ACUTE RESPIRATORY DISTRESS, NO ACUTE PAIN. MIDLINE OF DEVAUGHN CLEAN,DRY AND INTACT. SHOWS NO SIGNS OF INFILTRATION, NO REDNESS. SANDY IS FLOWING CLEAR YELLOW URINE AND FLEXISEAL IS INTACT. ALL DUE MEDICATIONS GIVEN. SAFETY PRECAUTIONS IN PLACE. BED IN LOWEST POSITION, LOCKED, AND CALL LIGHT KEPT WITHIN REACH. WILL ENDORSE TO ONCOMING NURSE.
[2019-08-20] MEDS: BLOOD SUGAR DIAGNOSTIC 1 EACH STRIP IN SCH ×2 (06:50→13:14)
[2019-08-20 08:00] VITALS: BP 130/72
[2019-08-20] MEDS: SILVER SULFADIAZINE CREAM 25 GM TUBE TP SCH (09:00)
[2019-08-20] MEDS: NEOMY SULF/BACITRAC ZN/POLY 15 GM TUBE TP SCH (09:00)
[2019-08-20] MEDS ORDERED: INSULIN GLARGINE, 100 UNIT/ML CARTRIDGE SQ SCH (09:00)
[2019-08-20] MEDS: QUETIAPINE FUMARATE 25 MG TABLET PO SCH ×2 (09:00→13:00)
[2019-08-20] MEDS: MUPIROCIN OINT 2% 22 GM TUBE SCH (09:28)
[2019-08-20] MEDS: predniSONE 10 MG TABLET PO SCH (09:29)
[2019-08-20] MEDS: DILTIAZEM HCL CD 240 MG PO SCH (09:29)
[2019-08-20] MEDS: GABAPENTIN 100 MG CAPSULE PO SCH ×2 (09:29→13:00)
[2019-08-20] MEDS: VALPROIC ACID 250 MG/5 ML UDC PO SCH (09:29)
[2019-08-20] MEDS: FAMOTIDINE (20 MG) 20 MG TABLET PO SCH (09:30)
[2019-08-20] MEDS: FINASTERIDE (5 MG) 5 MG TABLET PO SCH (09:30)
[2019-08-20] MEDS: Z GUARD REMEDY 2 OZ OINT TP SCH (09:36)
[2019-08-20] MEDS ORDERED: Digoxin PO (11:35)
[2019-08-20] MEDS ORDERED: DILT240C88 PO (11:35)
[2019-08-20] MEDS ORDERED: RIVA10TA PO (11:35)
[2019-08-20] MEDS ORDERED: METO50TA16 PO (11:35)
[2019-08-20 13:33] VITALS: BP 111/71
[2019-08-20] MEDS: DIGOXIN 0.25 MG TABLET PO SCH (13:33)
--- NOTE | 2019-08-20 15:00 | NUR ---
Patient discharged to [facility] for continuation of care. VSS. IV removed. Flexiseal removed. Changed oxygen over to medical transport's supply at 3 liters/min via nasal cannula. All belongings sent with patient. Report given to SHEREEN Hameed at [facility]. Instructed transport personnel to take patient to [facility] as indicated by SHEREEN Hameed. Discharge packet sent with transport personnel.
== END 2019-08-20 15:28 | DRG 981 ==
LOC: ER 21:02 → TELE-TD 08-14 04:07 → ICU 08-16 09:00 → TELE1 08-16 14:30 → TELE-TD 08-16 14:46 → TELE1 08-16 20:42 → TELE-TD 08-17 05:07 → MEDSG1 08-18 10:30
PROVIDERS: ADMIT Student in an Organized Health Care Education/Training Program; ATTEND Family Medicine
PROC: 05H933Z Insertion of Infusion Device into Right Brachial Vein, Percutaneous Approach (ICD-10-PCS; 2019-08-15)
PROC: 0KBS0ZZ Excision of Right Lower Leg Muscle, Open Approach (ICD-10-PCS; principal; 2019-08-16)
PROC: 5A2204Z Restoration of Cardiac Rhythm, Single (ICD-10-PCS; 2019-08-16)
DX: I48.91 Unspecified atrial fibrillation (principal); G93.41 Metabolic encephalopathy; E87.0 Hyperosmolality and hypernatremia; L97.429 Non-pressure chronic ulcer of left heel and midfoot with unspecified severity; N17.9 Acute kidney failure, unspecified; N39.0 Urinary tract infection, site not specified; I50.22 Chronic systolic (congestive) heart failure; I31.3 Pericardial effusion (noninflammatory); L03.115 Cellulitis of right lower limb; T87.81 Dehiscence of amputation stump; I11.0 Hypertensive heart disease with heart failure; E86.0 Dehydration; E87.6 Hypokalemia; E83.42 Hypomagnesemia; E83.39 Other disorders of phosphorus metabolism; E11.621 Type 2 diabetes mellitus with foot ulcer; Z89.611 Acquired absence of right leg above knee; Z89.511 Acquired absence of right leg below knee; S81.812A Laceration without foreign body, left lower leg, initial encounter; X58.XXXA Exposure to other specified factors, initial encounter; Y92.129 Unspecified place in nursing home as the place of occurrence of the external cause; E11.649 Type 2 diabetes mellitus with hypoglycemia without coma; E11.51 Type 2 diabetes mellitus with diabetic peripheral angiopathy without gangrene; F03.90 Unspecified dementia, unspecified severity, without behavioral disturbance, psychotic disturbance, mood disturbance, and anxiety; F09 Unspecified mental disorder due to known physiological condition; D64.9 Anemia, unspecified; F20.9 Schizophrenia, unspecified; R13.10 Dysphagia, unspecified; N40.0 Benign prostatic hyperplasia without lower urinary tract symptoms; S51.012A Laceration without foreign body of left elbow, initial encounter; R09.02 Hypoxemia; I27.20 Pulmonary hypertension, unspecified; Y83.5 Amputation of limb(s) as the cause of abnormal reaction of the patient, or of later complication, without mention of misadventure at the time of the procedure; Z79.4 Long term (current) use of insulin; B96.20 Unspecified Escherichia coli [E. coli] as the cause of diseases classified elsewhere; Z22.322 Carrier or suspected carrier of Methicillin resistant Staphylococcus aureus
CPT/HCPCS: 36415; 36600; 70496-TC; 71045-TC; 80048-TC; 80053-TC; 81000-TC; 82272-TC; 82728-TC; 82962-TC; 83540-TC; 83605-TC; 83735-TC; 84100-TC; 84439-TC; 84443-TC; 84484-TC; 85025-TC; 87040-TC; 87081-TC; 87086-TC; 87186-TC; 90715; 93307-TC; 97530-TC; A4217; A6253; A6403; G0378; J0282; J0696; J1650; J1815; J2060; J2704; J2916; J3475; J3480; J3490; J7030; J7042; J7050; J7060; J7070; Q9967

== ENCOUNTER 2019-09-24 12:57 | Emergency (ER) | payer MEDICARE, OTHER ==
[~2019-09-24] VITALS: Ht 167.6 cm; Wt 59.0 kg
[~2019-09-24 12:57] MED LIST: AMLO10TA7 PO; DILT240C88 PO; Digoxin PO; FAMO20TA8 PO; FERR325T23 PO; FINA5TAB11 PO; GABA-532 PO; INSU100V7 SQ; METO50TA16 PO; OXYC-128 PO; PRED10TA PO; QUET25TA PO; RIVA10TA PO; TAMS-12 PO; VALP250C3 PO
--- NOTE | 2019-09-24 13:19 | NUR ---
SHAWN RUIZ AT BEDSIDE FOR EVAL.
--- NOTE | 2019-09-24 13:40 | NUR ---
SHAHID PARDO AT BEDSIDE FOR WOUND CARE.
[2019-09-24] MEDS ORDERED: AMIN30LI27 PO (14:08)
[2019-09-24] MEDS ORDERED: ASCO500T9 PO (14:08)
[2019-09-24] MEDS ORDERED: BENZ1TAB7 PO (14:08)
[2019-09-24] MEDS ORDERED: MUPI22OI7 TD (14:08)
[2019-09-24] MEDS ORDERED: ZINC1CAP3 PO (14:08)
[2019-09-24] MEDS ORDERED: BISA10SU11 RC (14:08)
[2019-09-24] MEDS ORDERED: ACET-868 PO ×2 (14:08)
[2019-09-24] MEDS ORDERED: FAMO20TA8 PO (14:08)
[2019-09-24] MEDS ORDERED: INSU100V39 SQ ×2 (14:08)
[2019-09-24] MEDS ORDERED: MULT-447 PO (14:08)
[2019-09-24] MEDS ORDERED: MIRT15TA7 PO (14:08)
[2019-09-24] MEDS ORDERED: LORA-259 PO (14:08)
[2019-09-24] MEDS ORDERED: MAGN400O6 PO (14:09)
--- NOTE | 2019-09-24 14:19 | NUR ---
PT TO RADIOLOGY FOR HEAD AND C SPINE CT SCAN VIA [facility].
[2019-09-24] MEDS ORDERED: HALOPERIDOL LACTATE INJ 5 MG/ML VIAL ONE (15:10)
--- NOTE | 2019-09-24 15:13 | NUR ---
PT AGITATED, YELLING AT BEDSIDE. SHAWN RUIZ AWARE. PT MEDICATED ORDERED.
[2019-09-24] MEDS ORDERED: HALOPERIDOL LACTATE INJ 5 MG/ML VIAL IM ONE (15:30)
[2019-09-24] MEDS ORDERED: LORAZEPAM INJ 2 MG/ML VIAL ONE (15:45)
--- NOTE | 2019-09-24 15:49 | NUR ---
CALLED EMETERIO MARINO ETA 1800
[2019-09-24] MEDS ORDERED: LORAZEPAM INJ 2 MG/ML VIAL IM ONE (16:00)
--- NOTE | 2019-09-24 17:40 | NUR ---
PTS SON, NAM CALLED. [phone]. AWAITING RN TO CALL HIM BACK
--- NOTE | 2019-09-24 18:50 | NUR ---
PT TRANSPORTED BACK TO FACILITY IN STABLE CONDITION.
[2019-09-24 18:53] VITALS: BP 125/77
== END 2019-09-24 18:53 | disposition home or self-care (01) ==
LOC: ER 13:02
DX: S01.81XA Laceration without foreign body of other part of head, initial encounter (principal); S61.511A Laceration without foreign body of right wrist, initial encounter; F03.90 Unspecified dementia, unspecified severity, without behavioral disturbance, psychotic disturbance, mood disturbance, and anxiety; M48.54XA Collapsed vertebra, not elsewhere classified, thoracic region, initial encounter for fracture; M50.30 Other cervical disc degeneration, unspecified cervical region; I48.91 Unspecified atrial fibrillation; E11.9 Type 2 diabetes mellitus without complications; Z88.5 Allergy status to narcotic agent; Z79.899 Other long term (current) drug therapy; Z79.4 Long term (current) use of insulin; W06.XXXA Fall from bed, initial encounter; Y93.89 Activity, other specified; Y92.89 Other specified places as the place of occurrence of the external cause; Y99.8 Other external cause status
CPT/HCPCS: 12002; 12011; 70450; 72125; 73030; 96372 ×2; 99285; J1630; J2060